=== PATIENT | male | born 1990 | race Caucasian/White ===

== ENCOUNTER 2017-04-23 18:10 | Inpatient (IN) ==
--- NOTE | 2017-04-23 18:35 | Emergency Department Report ---
Overdose HPI - General Chief Complaint: Overdose Stated Complaint: Overdose/SI Time Seen by Provider: 04/23/17 18:35 Source: patient Mode of arrival: other ([facility]) Limitations: altered mental status - History of Present Illness HPI Narrative: 26 YO M brought to ED by [facility] for overdose of 10 Unisom tablets. Patient states that he is divorce from his and that he does not want to be here anymore. Patient also has several superficial laceration on right wrist and forearm. Patient is somewhat confused. Says he took medication at 4:30 this afternoon. Says he took medication to hurt himself. Says he tried to harm himself approx. 1 year ago for "the same reason". complaint: intentional overdose Onset (ago): hour(s) (2) Intent: suicide attempt Context: Intentional Overdose: relationship problems - Related Data Home Medications Medication Instructions Recorded Confirmed No known Home medications [No home 04/23/17 04/23/17 meds] Allergies Allergy/AdvReac Type Severity Reaction Status Date / Time No Known Allergies Allergy Verified 04/23/17 18:44 Review of Systems All systems: reviewed and negative except as stated Psychiatric: Reports: as per HPI, suicidal thoughts, other (overdose) PFSH Patient denies PMH Surgical History: Hernia repair. Testicular surgery Family History: Noncontributory - Social History Smoking status: Current every day smoker Substance use type: methamphetamine Current occupational status: employed Current residence: Apartment/Private Home Physical Exam - Limitations Limitations: altered mental status (confussed and hallucinating) - General General appearance: alert (but confussed) - Normal Exams: Head:: Normocephalic without trauma Eyes:: No scleral icterus, irritation Neck:: Full range of motion, without adenopathy Chest/Respirations:: Clear all anderson, with good airflow, and symmetry bilaterally Cardiovascular:: Regular rate and rhythm, without murmur or gallop Abdomen:: Bowel sounds positive, soft, non-tender, non-distended, no hepatosplenomegaly Musculoskeletal:: No tenderness, or deformity noted, good range of motion, all extremities - Eye Eye exam: Present: other (eyes are dilated bilaterally) - Neck Neck exam: Present: trachea midline - Skin Skin exam: Present: warm, dry, other (Superficial lacerations to right wrist and forearm, no active bleeding) - Expanded Neurological Exam Patient oriented to: Present: person, place Motor strength - LUE: 5/5 Motor strength - RUE: 5/5 Motor strength - LLE: 5/5 Motor strength - RLE: 5/5 DTR: 2+: triceps (L), triceps (R), patellar (L), patellar (R) - Psychiatric Psychiatric exam: Present: agitated, suicidal ideation - Expanded Psychiatric Exam Expanded psych exam: Present: visual hallucinations Course Course Narrative: Patient is having visual hallucinations. Patient is becoming more agitated - Consultations Consultation #1: I discussed patient's HPI, PMH, labs, VS, exam findings, treatment in ED and conversation I had with Poison Control with Dr. Hanley. Dr. Hanley with admit patient to ICU. Time: 21:17 Vital Signs Temperature 98.4 F 04/23/17 18:11 Pulse Rate 83 04/23/17 18:11 Respiratory Rate 16 04/23/17 18:11 Blood Pressure 130/62 04/23/17 18:11 Pulse Oximetry 95 04/23/17 18:11 Temperature 97.9 F 04/25/17 16:00 Pulse Rate 68 04/25/17 19:00 Respiratory Rate 30 H 04/25/17 19:00 Blood Pressure 106/66 04/25/17 19:00 Pulse Oximetry 98 04/25/17 19:00 Overdose - MDM Narrative Medical decision making narrative: Patient continued to become more agitated while being in the ER prior to admission to the CCU. Patient was given Ativan twice for agitation. Patient was admitted to the CCU under the hospitalist service for observation throughout the night. Patient will be screened by [facility] tomorrow. Patient has remained stable and ED has follow poison control's protocol or overdose of Unisom. - Differential Diagnosis Likely: suicide attempt by multiple drug overdose, drug overdose, acetaminophen overdose, accidental drug ingestion - Medical Records Attestation: I reviewed the patient's medical records. - Lab Data Attestation: I reviewed the patient's lab results. Result diagrams: 04/25/17 01:55 04/25/17 01:55 Lab Results 04/23/17 04/23/17 04/23/17 Range/Units 18:57 18:57 19:58 WBC 7.0 (4.5-11.0) T/MM3 RBC 4.57 (4.50-5.90) M/MM3 Hgb 14.2 (13.5-17.5) GM/DL Hct 41.1 (41-53) % MCV 89.9 (80-100) UM3 MCH 31.1 (26-34) UUG MCHC 34.5 (31-37) GM/DL RDW Std Deviation 41.8 (36.9-50.2) FL Plt Count 230 (130-400) T/MM3 MPV 9.6 (9.4-12.4) UM3 Immature Gran % (Auto) 0.1 (0.0-0.5) % Neut % (Auto) 61.2 (33-66) % Lymph % (Auto) 26.7 (23-45) % [place] % (Auto) 10.7 H (0-9.0) % Eos % (Auto) 1.0 (0-4) % Baso % (Auto) 0.3 (0-2) % Neut # 4.3 (1.8-7.7) T/MM3 Lymph # 1.9 (1-4.8) T/MM3 [place] # 0.8 (0-0.8) T/MM3 Eos # 0.1 (0-0.5) T/MM3 Baso # 0.0 (0-0.2) T/MM3 Abs Immat Gran (auto) 0.01 (0.00-0.03) T/MM3 Turbidity < 20 (0-20) Sodium 145 H (134-144) MEQ/L Potassium 3.8 (3.6-5) MEQ/L Chloride 108 H (98-107) MEQ/L Carbon Dioxide 25 (22-30) MEQ/L Anion Gap 12 (5-15) MEQ/L BUN 13.0 (9-20) MG/DL Creatinine 1.0 (0.8-1.5) MG/DL GFR Calculation 89 BUN/Creatinine Ratio 13 (6-26) RATIO Glucose 88 (75-110) MG/DL Calculated Osmolality 278 (261-280) MOSM/KG Calcium 9.8 (8.4-10.2) MG/DL Magnesium (1.6-2.3) MG/DL Total Bilirubin 0.70 (0.20-1.30) MG/DL Icterus Index < 2 (0-7) AST 18 (17-59) U/L ALT 33 (21-72) U/L Alkaline Phosphatase 56 (38-126) U/L Total Protein 6.9 (6.3-8.2) G/DL Albumin 4.6 (3.5-5.0) G/DL Globulin 2.3 L (2.4-3.6) G/DL Albumin/Globulin Ratio 2.0 (1.1-2.2) RATIO TSH 10.90 H (0.47-4.68) MIU/L Free T4 (0.78-2.19) NG/DL Specimen Hemolysis < 15 (0-25) Ur Collection Type Urine, clean catch Urine Color Yellow (YELLOW) Urine Clarity Clear Urine pH 5.5 (5.0-8.0) Ur Specific Saxis >=1.030 H (1.015-1.025) Urine Protein Trace A (NEGATIVE) Urine Glucose (UA) Negative (NEGATIVE) Urine Ketones Negative (NEGATIVE) Urine Occult Blood Negative (NEGATIVE) Urine Nitrate Negative (NEGATIVE) Urine Bilirubin Negative (NEGATIVE) Urine Urobilinogen 0.2 (NORMAL) EU/DL Ur Leukocyte Esterase Negative (NEGATIVE) Urinalysis Comment Microscopic not ind. Salicylates < 1.0 L (2-20) MG/DL Urine Opiates Screen ng/mL Ur Oxycodone Screen ng/mL Urine Methadone Screen ng/mL Ur Propoxyphene Screen ng/mL Acetaminophen 103 H (10-30) UG/ML Ur Barbiturates Screen ng/mL U Tricyclic Antidepress ng/mL Ur Phencyclidine Scrn ng/mL Ur Amphetamines Screen ng/mL U Methamphetamines Scrn ng/mL U Benzodiazepines Scrn ng/mL Urine Cocaine Screen ng/mL U Cannabinoids Screen ng/mL Ur Drug Screen Confirm Ur Drug Screen Info Alcohol, Quantitative <10 (<10) MG/DL 04/23/17 04/23/17 04/23/17 Range/Units 19:58 19:58 20:47 WBC (4.5-11.0) T/MM3 RBC (4.50-5.90) M/MM3 Hgb (13.5-17.5) GM/DL Hct (41-53) % MCV (80-100) UM3 MCH (26-34) UUG MCHC (31-37) GM/DL RDW Std Deviation (36.9-50.2) FL Plt Count (130-400) T/MM3 MPV (9.4-12.4) UM3 Immature Gran % (Auto) (0.0-0.5) % Neut % (Auto) (33-66) % Lymph % (Auto) (23-45) % [place] % (Auto) (0-9.0) % Eos % (Auto) (0-4) % Baso % (Auto) (0-2) % Neut # (1.8-7.7) T/MM3 Lymph # (1-4.8) T/MM3 [place] # (0-0.8) T/MM3 Eos # (0-0.5) T/MM3 Baso # (0-0.2) T/MM3 Abs Immat Gran (auto) (0.00-0.03) T/MM3 Turbidity (0-20) Sodium (134-144) MEQ/L Potassium (3.6-5) MEQ/L Chloride (98-107) MEQ/L Carbon Dioxide (22-30) MEQ/L Anion Gap (5-15) MEQ/L BUN (9-20) MG/DL Creatinine (0.8-1.5) MG/DL GFR Calculation BUN/Creatinine Ratio (6-26) RATIO Glucose (75-110) MG/DL Calculated Osmolality (261-280) MOSM/KG Calcium (8.4-10.2) MG/DL Magnesium (1.6-2.3) MG/DL Total Bilirubin (0.20-1.30) MG/DL Icterus Index (0-7) AST (17-59) U/L ALT (21-72) U/L Alkaline Phosphatase (38-126) U/L Total Protein (6.3-8.2) G/DL Albumin (3.5-5.0) G/DL Globulin (2.4-3.6) G/DL Albumin/Globulin Ratio (1.1-2.2) RATIO TSH (0.47-4.68) MIU/L Free T4 (0.78-2.19) NG/DL Specimen Hemolysis (0-25) Ur Collection Type Urine Color (YELLOW) Urine Clarity Urine pH (5.0-8.0) Ur Specific Saxis (1.015-1.025) Urine Protein (NEGATIVE) Urine Glucose (UA) (NEGATIVE) Urine Ketones (NEGATIVE) Urine Occult Blood (NEGATIVE) Urine Nitrate (NEGATIVE) Urine Bilirubin (NEGATIVE) Urine Urobilinogen (NORMAL) EU/DL Ur Leukocyte Esterase (NEGATIVE) Urinalysis Comment Salicylates (2-20) MG/DL Urine Opiates Screen Negative ng/mL Ur Oxycodone Screen Negative ng/mL Urine Methadone Screen Negative ng/mL Ur Propoxyphene Screen Negative ng/mL Acetaminophen 108 H (10-30) UG/ML Ur Barbiturates Screen Negative ng/mL U Tricyclic Antidepress Positive ng/mL Ur Phencyclidine Scrn Negative ng/mL Ur Amphetamines Screen Positive ng/mL U Methamphetamines Scrn Positive ng/mL U Benzodiazepines Scrn Negative ng/mL Urine Cocaine Screen Negative ng/mL U Cannabinoids Screen Positive ng/mL Ur Drug Screen Confirm Sent out Ur Drug Screen Info Ref lab rpt scanned Alcohol, Quantitative (<10) MG/DL 04/24/17 04/24/17 04/24/17 Range/Units 01:09 06:00 06:00 WBC (4.5-11.0) T/MM3 RBC (4.50-5.90) M/MM3 Hgb (13.5-17.5) GM/DL Hct (41-53) % MCV (80-100) UM3 MCH (26-34) UUG MCHC (31-37) GM/DL RDW Std Deviation (36.9-50.2) FL Plt Count (130-400) T/MM3 MPV (9.4-12.4) UM3 Immature Gran % (Auto) (0.0-0.5) % Neut % (Auto) (33-66) % Lymph % (Auto) (23-45) % [place] % (Auto) (0-9.0) % Eos % (Auto) (0-4) % Baso % (Auto) (0-2) % Neut # (1.8-7.7) T/MM3 Lymph # (1-4.8) T/MM3 [place] # (0-0.8) T/MM3 Eos # (0-0.5) T/MM3 Baso # (0-0.2) T/MM3 Abs Immat Gran (auto) (0.00-0.03) T/MM3 Turbidity < 20 (0-20) Sodium 143 (134-144) MEQ/L Potassium 4.0 (3.6-5) MEQ/L Chloride 112 H (98-107) MEQ/L Carbon Dioxide 24 (22-30) MEQ/L Anion Gap 7 (5-15) MEQ/L BUN 12.0 (9-20) MG/DL Creatinine 0.9 (0.8-1.5) MG/DL GFR Calculation 100 BUN/Creatinine Ratio 13 (6-26) RATIO Glucose 82 (75-110) MG/DL Calculated Osmolality 274 (261-280) MOSM/KG Calcium 9.0 D (8.4-10.2) MG/DL Magnesium 2.2 (1.6-2.3) MG/DL Total Bilirubin (0.20-1.30) MG/DL Icterus Index < 2 (0-7) AST (17-59) U/L ALT (21-72) U/L Alkaline Phosphatase (38-126) U/L Total Protein (6.3-8.2) G/DL Albumin (3.5-5.0) G/DL Globulin (2.4-3.6) G/DL Albumin/Globulin Ratio (1.1-2.2) RATIO TSH (0.47-4.68) MIU/L Free T4 (0.78-2.19) NG/DL Specimen Hemolysis 54 H (0-25) Ur Collection Type Urine Color (YELLOW) Urine Clarity Urine pH (5.0-8.0) Ur Specific Saxis (1.015-1.025) Urine Protein (NEGATIVE) Urine Glucose (UA) (NEGATIVE) Urine Ketones (NEGATIVE) Urine Occult Blood (NEGATIVE) Urine Nitrate (NEGATIVE) Urine Bilirubin (NEGATIVE) Urine Urobilinogen (NORMAL) EU/DL Ur Leukocyte Esterase (NEGATIVE) Urinalysis Comment Salicylates (2-20) MG/DL Urine Opiates Screen ng/mL Ur Oxycodone Screen ng/mL Urine Methadone Screen ng/mL Ur Propoxyphene Screen ng/mL Acetaminophen 61 H 31 H (10-30) UG/ML Ur Barbiturates Screen ng/mL U Tricyclic Antidepress ng/mL Ur Phencyclidine Scrn ng/mL Ur Amphetamines Screen ng/mL U Methamphetamines Scrn ng/mL U Benzodiazepines Scrn ng/mL Urine Cocaine Screen ng/mL U Cannabinoids Screen ng/mL Ur Drug Screen Confirm Ur Drug Screen Info Alcohol, Quantitative (<10) MG/DL 04/24/17 04/24/17 04/24/17 Range/Units 06:00 07:23 12:06 WBC (4.5-11.0) T/MM3 RBC (4.50-5.90) M/MM3 Hgb (13.5-17.5) GM/DL Hct (41-53) % MCV (80-100) UM3 MCH (26-34) UUG MCHC (31-37) GM/DL RDW Std Deviation (36.9-50.2) FL Plt Count (130-400) T/MM3 MPV (9.4-12.4) UM3 Immature Gran % (Auto) (0.0-0.5) % Neut % (Auto) (33-66) % Lymph % (Auto) (23-45) % [place] % (Auto) (0-9.0) % Eos % (Auto) (0-4) % Baso % (Auto) (0-2) % Neut # (1.8-7.7) T/MM3 Lymph # (1-4.8) T/MM3 [place] # (0-0.8) T/MM3 Eos # (0-0.5) T/MM3 Baso # (0-0.2) T/MM3 Abs Immat Gran (auto) (0.00-0.03) T/MM3 Turbidity < 20 (0-20) Sodium 144 (134-144) MEQ/L Potassium 3.9 (3.6-5) MEQ/L Chloride 111 H (98-107) MEQ/L Carbon Dioxide 26 (22-30) MEQ/L Anion Gap 7 (5-15) MEQ/L BUN 12.0 (9-20) MG/DL Creatinine 0.8 (0.8-1.5) MG/DL GFR Calculation 115 BUN/Creatinine Ratio 15 (6-26) RATIO Glucose 82 (75-110) MG/DL Calculated Osmolality 276 (261-280) MOSM/KG Calcium 8.7 (8.4-10.2) MG/DL Magnesium 2.2 (1.6-2.3) MG/DL Total Bilirubin (0.20-1.30) MG/DL Icterus Index < 2 (0-7) AST (17-59) U/L ALT (21-72) U/L Alkaline Phosphatase (38-126) U/L Total Protein (6.3-8.2) G/DL Albumin (3.5-5.0) G/DL Globulin (2.4-3.6) G/DL Albumin/Globulin Ratio (1.1-2.2) RATIO TSH 7.09 H (0.47-4.68) MIU/L Free T4 1.89 (0.78-2.19) NG/DL Specimen Hemolysis < 15 (0-25) Ur Collection Type Urine Color (YELLOW) Urine Clarity Urine pH (5.0-8.0) Ur Specific Saxis (1.015-1.025) Urine Protein (NEGATIVE) Urine Glucose (UA) (NEGATIVE) Urine Ketones (NEGATIVE) Urine Occult Blood (NEGATIVE) Urine Nitrate (NEGATIVE) Urine Bilirubin (NEGATIVE) Urine Urobilinogen (NORMAL) EU/DL Ur Leukocyte Esterase (NEGATIVE) Urinalysis Comment Salicylates (2-20) MG/DL Urine Opiates Screen ng/mL Ur Oxycodone Screen ng/mL Urine Methadone Screen ng/mL Ur Propoxyphene Screen ng/mL Acetaminophen (10-30) UG/ML Ur Barbiturates Screen ng/mL U Tricyclic Antidepress ng/mL Ur Phencyclidine Scrn ng/mL Ur Amphetamines Screen ng/mL U Methamphetamines Scrn ng/mL U Benzodiazepines Scrn ng/mL Urine Cocaine Screen ng/mL U Cannabinoids Screen ng/mL Ur Drug Screen Confirm Ur Drug Screen Info Alcohol, Quantitative (<10) MG/DL - EKG Data EKG #1 EKG attestation: Yes: I reviewed and interpreted this EKG. EKG results narrative: SR, 75 BPM, no STEMI (Dr. Thompson) Disposition Clinical Impression: Overdose Qualifiers: Encounter type: initial encounter Injury intent: intentional self-harm Qualified Code(s): T50.902A - Poisoning by unspecified drugs, medicaments and biological substances, intentional self-harm, initial encounter Disposition: [facility] [place] Condition: Stable - Seen By: midlevel
[2017-04-23] MEDS ORDERED: NS 1,000 ML IV ONE ×2 (18:45→19:56)
[2017-04-23] MEDS: SALINE FLUSH 10ml SYRINGE IVF PRN ×2 (18:55→23:48)
--- NOTE | 2017-04-23 22:57 | History & Physical Report ---
<Yogi Hanley Jessica - Last Filed: 04/23/17 23:53> History of Present Illness Date: 04/23/17 Chief complaint: Drug overdose, confusion, suicidal ideations HPI: This is a 26 y/o brought to ER by local police d/t concerns about drug overdose , confusion and suicidal ideations. Patient purportedly took 10 OTC Unisom tablets today b/t [id number](unknown formulation but suspect one containing antihistamine plus acetaminophen) and states that he did it intentionally to harm himself b/c he did not want to "be here anymore". Patient has periods of confusion and audio hallucinations per ER provider's report but at other times lucid and able to give some history. Per ER provider patient denied chest pain, SOA, dyspnea, LAU, n/v/d, f/c/s and change in bowel or bladder function. In ED, patient received IVFs and one dose of Ativan and contacted poison control and their recommendation was to admit for observation and telemetry and use benzodiazapines for agitation and monitor the QRS interval w/ serial EKGs. Acetaminophen level in ER approximately 4 hours after purported ingestion was 108, and per ER provider Poison Control was not concerned w/ this level. EKG in ER showed QRS interval of 0.1 and 0.11 respectively. Review of Systems ROS unobtainable: due to mental status Review of systems: As noted above in HPI, otherwise patient did not provide any additional history PFSH Per ER provider report patient may have h/o polysubstance abuse and depression w / one prior episode of suicidal ideations/intent approx. 1 year ago. Patient not able to provide specifics re: his past medical history. Surgical History: Hernia repair. Testicular surgery Family History: Patient unable to provide Family History and there is no family at the bedside - Social History Smoking status: Current every day smoker Substance use type: marijuana Medications Home Medications Medication Instructions Recorded Confirmed Type No known Home medications [No home 04/23/17 04/23/17 History meds] Allergies Allergy/AdvReac Type Severity Reaction Status Date / Time No Known Allergies Allergy Verified 04/23/17 18:44 Exam Vital Signs: Temperature 98.4 F 04/23/17 18:11 Pulse Rate 76 04/23/17 21:46 Respiratory Rate 19 04/23/17 19:14 Blood Pressure 125/77 04/23/17 21:46 Pulse Oximetry 98 04/23/17 21:46 Oxygen Delivery Method Room Air Telemetry Rhythm: Sinus Rhythm Height: 1.68 m Weight: 56.1 kg - Constitutional Present: mild distress Comments: Appears intermittently agitated and moves extremities spontaneously, other times appears calm - Routine HEENT Exam Head: Present: normocephalic, atraumatic Eye: Present: EOMI Comments: Pupils are mildly dilated, but reactive to light - Routine Neck Exam Present: supple, trachea midline. Absent: JVD, carotid bruit - Routine Respiratory Exam Present: CTA bilaterally. Absent: accessory muscle use, dyspnea, decreased breath sounds, prolonged expiratory phase, rales, respiratory distress, rhonchi , stridor, wheezes, crackles - Routine Cardiovascular Exam Present: RRR - Routine Abdominal Exam Present: soft, normoactive bowel sounds. Absent: tenderness, non distended, rebound, guarding - Routine Extremities Exam Absent: cyanosis, clubbing, edema - Routine Skin Exam Comments: some superficial lacerations on bilateral wrists anteriorly - Routine Psychiatric Exam Present: auditory hallucinations, agitated Comments: Patient will answer some questions, and oriented to name but not place or situation. Will occasionally make eye contact but then will look up at the nursing staff. Appears agitated intermittently. Results - Labs CBC & Chem 7: 04/23/17 18:57 04/23/17 18:57 Assessment and Plan DVT Prophylaxis: SCD's GI Prophylaxis: Protonix Resuscitation Status: Full Code Assessment and Plan: 1) Acute Intentional Overdose - per report patient took 10 OTC Unisom tabs with intent to harm himself 2) Acute Encephalopathy r/t above - unknown which type of Unisom taken however suspect was combination of diphenhydramine and acetminophen so likely anticholinergic effects 3) Acute Dehydration 4) Acute Suicidal ideations w/ probable h/o depression though unknown if on any medications currently 5) Polysubstance Abuse likely - reports of tobacco and EtOH use and tox screen + for TCA, marijuana and meth 6) Elevated TSH Plan: ICU monitoring Telemetry serial EKGs Labs in AM including recheck of TSH and free T4 Recheck of acetaminophen level at 0100 and 0600 Suicide precautions w/ 1:1 sitter IVFs that of NS tra 100cc/hour and recheck BMP in AM Ativan 1mg IV q 2 hours prn agitation/anxiety Clear liquid diet if able to be alert and oriented and follow commands and then can advance as tolerated SW Consult - will likely need placement Hospital Course Summary Disclaimer: The visit summary below is not to be considered part of the above Progress Note. <NadiaAvery S - Last Filed: 04/24/17 13:19> History of Present Illness Date: 04/24/17 Exam Vital Signs: Temperature 98.0 F 04/24/17 12:00 Pulse Rate 42 L 04/24/17 12:00 Respiratory Rate 21 04/24/17 12:00 Blood Pressure 120/65 04/24/17 12:00 Pulse Oximetry 100 04/24/17 12:00 Oxygen Delivery Method Room Air Height: 5 ft 6 in Weight: 56.1 kg Results - Labs CBC & Chem 7: 04/23/17 18:57 04/24/17 12:06 Assessment and Plan Assessment and Plan: Patient seen and examined. Agree with above assessment and plan. Patient is still extremely altered and actively hallucinating. Very bradycardic as well. We will check a tricyclic level. Hospital Course Summary Disclaimer: The visit summary below is not to be considered part of the above Progress Note.
[2017-04-23] MEDS ORDERED: CALCIUM CARBONATE Chewable 500mg TABLET PO PRN (23:12)
[2017-04-23] MEDS ORDERED: IBUPROFEN 400 MG TABLET PO PRN (23:12)
[2017-04-23] MEDS ORDERED: ONDANSETRON 4 MG/2 ML INJECTION IVP PRN (23:12)
[2017-04-23] MEDS ORDERED: NS 1,000 ML IV SCH (23:12)
[2017-04-23] MEDS ORDERED: DOCUSATE SODIUM 100 MG CAPSULE PO PRN (23:12)
[2017-04-24] MEDS: PANTOPRAZOLE 40 MG INJECTION IVP SCH ×2 (00:51→09:05)
[2017-04-24] MEDS ORDERED: SODIUM BICARBONATE 8.4% (50mEq/50ml) PFS (1 amp) IVP ONE (09:00)
[2017-04-24] MEDS ORDERED: SODIUM BICARBONATE 100 MEQ in D5W 1,000 ML IV SCH (09:15)
[2017-04-24] MEDS: NS 1,000 ML IV SCH ×2 (10:10→20:37)
--- NOTE | 2017-04-24 22:01 | Neuropsychiatric Consult ---
[facility] Date: 04/24/17 Requesting Physician: Yogi Hanley Reason for Consultation: overdose on Unisom Start Time: 19:30 Stop Time: 20:00 History of Present Illness: Patient is a 26-year-old, male, who presented to the ER via EMS post suicide attempt by overdose on unknown quantity of Unisom( Diphenhydramine). Since admission he has been bradycardic and his UDS on presentation was positive for Amphetamine, Methamphetamine and TCA , the later possibly due to the Unisom. Patient was seen to be confused and disoriented to time, place and person. He was noted to be agitated, turning and rolling from one end of the bed to another due to the confusion. Patient has required a total of 8 mg of Lorazepam given for agitation, since admission so far and he continues to be confused. There is concern of patient's low pulse rate ranging in the 30's. PMHx: unable to obtain due to confusion Past Psych : Unable to obtain due to confusion PFSH Unable to obtain due to confusion Surgical History: Hernia repair. Testicular surgery Family History: Unable to obtain due to confusion - Social History Smoking status: Current every day smoker Review of Systems ROS unobtainable: due to mental status Mental Status Exam Vitals: Last Vital Signs Temp 98 F 04/24/17 18:04 Pulse 39 L 04/24/17 18:04 Resp 16 04/24/17 18:04 BP 111/69 04/24/17 18:04 Pulse Ox 99 04/24/17 18:04 Height: 1.68 m Weight: 56.1 kg - Mental Status Exam Muscle Strength/Tone: Weak Dressing: Bizarre Grooming: Poor Attitude: Uncooperative, Combative Motor Activity: Agitation, Restless Eye Contact: Poor Speech: Other (incoherent) Rhythm: Mumbled, Paucity of Language Orientation: Disoriented to time, Disoriented to person, Disoriented to place, Disoriented to situation Mood: Other (confused) Rate of Thoughts: Delayed Thought Organization: Disorganized Associations: Loose-associations, Illogical Abstract Reasoning: Poor abstract reasoning Computation: Poor Computation Thought Content: Dissociative Perception/Psychotic: Psychotic Current Hallucinations: Visual Language: Naming Impaired Fund of Knowledge: Poor fund of knowledge Memory: Poor-immediate, Poor-recent, Poor-remote Suicidal Ideation: Plan (given recent suicide attempt) Insight: Poor Judgement: Poor Impulse Control: Poor - Laboratory Result Diagrams: 04/23/17 18:57 04/24/17 12:06 Assessment and Plan (1) Anticholinergic drug overdose Current visit: Yes Status: Acute (2) Delirium due to another medical condition, acute, hyperactive Current visit: Yes Status: Acute (3) Depressive disorder Current visit: Yes Status: Acute Assessment: 1. Anti-cholinergic drug overdose 2. delirium due to the later. 3. Depressive disorder Plan 1. Patient will require Level 3 suicide precaution- Constant observation. 2.Given the overdose on Benadryl, he will require an anti-psychotic with the least anti-cholinergic effect- Risperidone Mtab 1mg BID. 3.Patient to start Lorazepam 2mg TID. This will reduce the PRN medication use. 4.Cont. to rehydrate patient. 5. Patient will most likely require inpatient psych hospitalization when medically stable. 6. Patient can not leave AMA, and if he tries to leave, please take out a court hold. 7. We will continue to follow patient. 8. Thank you for the opportunity to participate in the care of this patient
[2017-04-24] MEDS ORDERED: HALOPERIDOL 5 MG/ML INJECTION IVP ONE (23:09)
[2017-04-24] MEDS: RisperiDONE 1 MG TABLET PO SCH (23:14)
[2017-04-25] MEDS ORDERED: FALL RISK - PHARMACY CONSULT MC PRN (00:03)
--- NOTE | 2017-04-25 07:33 | Cardiology Consult Note ---
History of Present Illness Consult date: 04/25/17 <Concepcion Thornton - 04/25/17 07:40> Requesting physician: Damion Rodríguez <Concepcion Thornton - 04/25/17 07:40> Chief complaint: bradycardia <Concepcion Thornton - 04/25/17 07:40> History of present illness: Aroldo is a 26 year old male brought to ED by local police post suicide attempt by overdose on unknown quantity of Unisom (Diphenhydramine). He purportedly took 10 tablets between 1114-0722 yesterday and stated that he did it intentionally to harm himself because he did not want to "be here anymore". He had periods of confusion and audio hallucinations per ED provider's report but at other times lucid and able to give some history. Since admission he has been bradycardic as low as the 30s and his UDS on presentation was positive for Amphetamine, Methamphetamine and TCA , the later possibly due to the Unisom. Aroldo is examined in his room in CCU, he is in no acute distress, breathing is shallow and non-labored, he does not respond to voice or touch. <Concepcion Thornton 04/25/17 09:47> Review of Systems ROS unobtainable: other (patient uncooperative) <Concepcion Thornton 04/25/17 09: 47> [facility] Unable to obtain from patient. <Concepcion Thornton 04/25/17 09:47> Surgical History: Hernia repair. Testicular surgery <Concepcion Thornton 07:40> Family History: Unable to obtain from patient. 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 <Concepcion Thornton 04/25/17 09:47> Current occupational status: employed <Concepcion Thornton 04/25/17 09:47> Current occupation: [employer] <Concepcion Thornton 04/25/17 09:47> Medications Home Medications Medication Instructions Recorded Confirmed Type No known Home medications [No home 04/23/17 04/23/17 History meds] <Louis Batres - 04/26/17 11:59> Allergies Allergy/AdvReac Type Severity Reaction Status Date / Time No Known Allergies Allergy Verified 04/23/17 18:44 <Louis Batres - 04/26/17 11:59> Exam Vital signs: Temperature 97.9 F 04/25/17 16:00 Pulse Rate 68 04/25/17 19:00 Respiratory Rate 30 H 04/25/17 19:00 Blood Pressure 106/66 04/25/17 19:00 Pulse Oximetry 98 04/25/17 19:00 Oxygen Delivery Method Room Air <Louis Batres - 04/26/17 11:59> Temperature 97.9 F 04/25/17 04:00 Pulse Rate 51 L 04/25/17 07:15 Respiratory Rate 25 H 04/25/17 07:15 Blood Pressure 94/55 04/25/17 07:15 Pulse Oximetry 100 04/25/17 07:15 Oxygen Delivery Method Room Air <Concepcion Thornton 04/25/17 07:40> - Constitutional no acute distress, thin, somnolent <Concepcion Thornton 04/25/17 09:47> - Routine HEENT Exam Head: Present: normocephalic <Concepcion Thornton 04/25/17 09:47> - Routine Neck Exam Absent: JVD, carotid bruit <Concepcion Thornton 04/25/17 09:47> - Routine Chest/Breast/Axilla Exam Chest wall: Absent: tenderness <Concepcion Thornton 04/25/17 09:47> - Routine Respiratory Exam Present: CTA bilaterally. Absent: rales, wheezes <Concepcion Thornton 04/25/17 09:47> - Routine Cardiovascular Exam Present: RRR, no murmur. Absent: JVD <Concepcion Thornton 04/25/17 09:47> - Routine Abdominal Exam Present: soft, normoactive bowel sounds <Concepcion Thornton 04/25/17 09:47> - Routine Extremities Exam Present: no edema <Concepcion Thornton - 04/25/17 09:47> - Routine Skin Exam Present: intact, dry, warm <Concepcion Thornton - 04/25/17 09:47> - Routine Neurological Exam Present: altered mental status <Concepcion Thornton - 04/25/17 09:47> - Routine Psychiatric Exam Present: unable to assess <Concepcion Thornton - 04/25/17 09:47> Results 04/25/17 01:55 04/25/17 01:55 <MedardoTaylorLouis - 04/26/17 11:59> Cardiac Enzymes 04/25/17 Range/Units 01:55 Troponin I < 0.012 (0-0.12) ng/ml CBC 04/25/17 Range/Units 01:55 WBC 7.5 (4.5-11.0) T/MM3 RBC 4.23 L (4.50-5.90) M/MM3 Hgb 13.2 L (13.5-17.5) GM/DL Hct 39.7 L (41-53) % Plt Count 179 (130-400) T/MM3 Neut # 3.7 (1.8-7.7) T/MM3 Lymph # 2.9 (1-4.8) T/MM3 [place] # 0.6 (0-0.8) T/MM3 Eos # 0.3 (0-0.5) T/MM3 Baso # 0.0 (0-0.2) T/MM3 Comprehensive Metabolic Panel 04/25/17 Range/Units 01:55 Sodium 141 (134-144) MEQ/L Potassium 4.1 (3.6-5) MEQ/L Chloride 110 H (98-107) MEQ/L Carbon Dioxide 24 (22-30) MEQ/L BUN 13.0 (9-20) MG/DL Creatinine 0.9 (0.8-1.5) MG/DL Glucose 77 (75-110) MG/DL Calcium 8.7 (8.4-10.2) MG/DL Intake and Output 04/24/17 04/25/17 04/25/17 22:59 06:59 14:59 Intake Total 655.000 / 755.000 400 / 400 Output Total 350 / 350 Balance 305.000 / 405.000 400 / 400 Intake: IV 655.000 / 755.000 400 / 400 Normal Saline 1,000 ml @ 655.000 / 755.000 400 / 400 100 mls/hr IV .Q10H [facility] Rx#:[id number] Output: Urine 350 / 350 Laboratory Results - last 48 hr 04/23/17 04/23/17 04/23/17 18:57 18:57 19:58 WBC 7.0 RBC 4.57 Hgb 14.2 Hct 41.1 MCV 89.9 MCH 31.1 MCHC 34.5 RDW Std Deviation 41.8 Plt Count 230 MPV 9.6 Immature Gran % (Auto) 0.1 Neut % (Auto) 61.2 Lymph % (Auto) 26.7 [place] % (Auto) 10.7 H Eos % (Auto) 1.0 Baso % (Auto) 0.3 Neut # 4.3 Lymph # 1.9 [place] # 0.8 Eos # 0.1 Baso # 0.0 Abs Immat Gran (auto) 0.01 Turbidity < 20 Sodium 145 H Potassium 3.8 Chloride 108 H Carbon Dioxide 25 Anion Gap 12 BUN 13.0 Creatinine 1.0 GFR Calculation 89 BUN/Creatinine Ratio 13 Glucose 88 Calculated Osmolality 278 Calcium 9.8 Magnesium Total Bilirubin 0.70 Icterus Index < 2 AST 18 ALT 33 Alkaline Phosphatase 56 Creatine Kinase Troponin I Total Protein 6.9 Albumin 4.6 Globulin 2.3 L Albumin/Globulin Ratio 2.0 TSH 10.90 H Specimen Hemolysis < 15 Ur Collection Type Urine, clean catch Urine Color Yellow Urine Clarity Clear Urine pH 5.5 Ur Specific [place] >=1.030 H Urine Protein Trace A Urine Glucose (UA) Negative Urine Ketones Negative Urine Occult Blood Negative Urine Nitrate Negative Urine Bilirubin Negative Urine Urobilinogen 0.2 Ur Leukocyte Esterase Negative Urinalysis Comment Microscopic not ind. Salicylates < 1.0 L Urine Opiates Screen Ur Oxycodone Screen Urine Methadone Screen Ur Propoxyphene Screen Acetaminophen 103 H Ur Barbiturates Screen U Tricyclic Antidepress Ur Phencyclidine Scrn Ur Amphetamines Screen U Methamphetamines Scrn U Benzodiazepines Scrn Urine Cocaine Screen U Cannabinoids Screen Ur Drug Screen Confirm Alcohol, Quantitative <10 04/23/17 04/23/17 04/23/17 19:58 19:58 20:47 WBC RBC Hgb Hct MCV MCH MCHC RDW Std Deviation Plt Count MPV Immature Gran % (Auto) Neut % (Auto) Lymph % (Auto) [place] % (Auto) Eos % (Auto) Baso % (Auto) Neut # Lymph # [place] # Eos # Baso # Abs Immat Gran (auto) Turbidity Sodium Potassium Chloride Carbon Dioxide Anion Gap BUN Creatinine GFR Calculation BUN/Creatinine Ratio Glucose Calculated Osmolality Calcium Magnesium Total Bilirubin Icterus Index AST ALT Alkaline Phosphatase Creatine Kinase Troponin I Total Protein Albumin Globulin Albumin/Globulin Ratio TSH Specimen Hemolysis Ur Collection Type Urine Color Urine Clarity Urine pH Ur Specific [place] Urine Protein Urine Glucose (UA) Urine Ketones Urine Occult Blood Urine Nitrate Urine Bilirubin Urine Urobilinogen Ur Leukocyte Esterase Urinalysis Comment Salicylates Urine Opiates Screen Negative Ur Oxycodone Screen Negative Urine Methadone Screen Negative Ur Propoxyphene Screen Negative Acetaminophen 108 H Ur Barbiturates Screen Negative U Tricyclic Antidepress Positive Ur Phencyclidine Scrn Negative Ur Amphetamines Screen Positive U Methamphetamines Scrn Positive U Benzodiazepines Scrn Negative Urine Cocaine Screen Negative U Cannabinoids Screen Positive Ur Drug Screen Confirm Sent out Alcohol, Quantitative 04/24/17 04/24/17 04/24/17 01:09 06:00 06:00 WBC RBC Hgb Hct MCV MCH MCHC RDW Std Deviation Plt Count MPV Immature Gran % (Auto) Neut % (Auto) Lymph % (Auto) [place] % (Auto) Eos % (Auto) Baso % (Auto) Neut # Lymph # [place] # Eos # Baso # Abs Immat Gran (auto) Turbidity < 20 Sodium 143 Potassium 4.0 Chloride 112 H Carbon Dioxide 24 Anion Gap 7 BUN 12.0 Creatinine 0.9 GFR Calculation 100 BUN/Creatinine Ratio 13 Glucose 82 Calculated Osmolality 274 Calcium 9.0 D Magnesium 2.2 Total Bilirubin Icterus Index < 2 AST ALT Alkaline Phosphatase Creatine Kinase Troponin I Total Protein Albumin Globulin Albumin/Globulin Ratio TSH Specimen Hemolysis 54 H Ur Collection Type Urine Color Urine Clarity Urine pH Ur Specific [place] Urine Protein Urine Glucose (UA) Urine Ketones Urine Occult Blood Urine Nitrate Urine Bilirubin Urine Urobilinogen Ur Leukocyte Esterase Urinalysis Comment Salicylates Urine Opiates Screen Ur Oxycodone Screen Urine Methadone Screen Ur Propoxyphene Screen Acetaminophen 61 H 31 H Ur Barbiturates Screen U Tricyclic Antidepress Ur Phencyclidine Scrn Ur Amphetamines Screen U Methamphetamines Scrn U Benzodiazepines Scrn Urine Cocaine Screen U Cannabinoids Screen Ur Drug Screen Confirm Alcohol, Quantitative 04/24/17 04/24/1717 06:00 12:06 01:55 WBC 7.5 RBC 4.23 L Hgb 13.2 L Hct 39.7 L MCV 93.9 MCH 31.2 MCHC 33.2 RDW Std Deviation 44.0 Plt Count 179 MPV 10.8 Immature Gran % (Auto) 0.1 Neut % (Auto) 48.5 Lymph % (Auto) 39.0 [place] % (Auto) 8.4 Eos % (Auto) 3.7 Baso % (Auto) 0.3 Neut # 3.7 Lymph # 2.9 [place] # 0.6 Eos # 0.3 Baso # 0.0 Abs Immat Gran (auto) 0.01 Turbidity < 20 Sodium 144 Potassium 3.9 Chloride 111 H Carbon Dioxide 26 Anion Gap 7 BUN 12.0 Creatinine 0.8 GFR Calculation 115 BUN/Creatinine Ratio 15 Glucose 82 Calculated Osmolality 276 Calcium 8.7 Magnesium 2.2 Total Bilirubin Icterus Index < 2 AST ALT Alkaline Phosphatase Creatine Kinase Troponin I Total Protein Albumin Globulin Albumin/Globulin Ratio TSH 7.09 H Specimen Hemolysis < 15 Ur Collection Type Urine Color Urine Clarity Urine pH Ur Specific [place] Urine Protein Urine Glucose (UA) Urine Ketones Urine Occult Blood Urine Nitrate Urine Bilirubin Urine Urobilinogen Ur Leukocyte Esterase Urinalysis Comment Salicylates Urine Opiates Screen Ur Oxycodone Screen Urine Methadone Screen Ur Propoxyphene Screen Acetaminophen Ur Barbiturates Screen U Tricyclic Antidepress Ur Phencyclidine Scrn Ur Amphetamines Screen U Methamphetamines Scrn U Benzodiazepines Scrn Urine Cocaine Screen U Cannabinoids Screen Ur Drug Screen Confirm Alcohol, Quantitative 04/25/17 04/25/17 01:55 01:55 WBC RBC Hgb Hct MCV MCH MCHC RDW Std Deviation Plt Count MPV Immature Gran % (Auto) Neut % (Auto) Lymph % (Auto) [place] % (Auto) Eos % (Auto) Baso % (Auto) Neut # Lymph # [place] # Eos # Baso # Abs Immat Gran (auto) Turbidity < 20 Sodium 141 Potassium 4.1 Chloride 110 H Carbon Dioxide 24 Anion Gap 7 BUN 13.0 Creatinine 0.9 GFR Calculation 100 BUN/Creatinine Ratio 14 Glucose 77 Calculated Osmolality 270 Calcium 8.7 Magnesium 2.2 Total Bilirubin Icterus Index < 2 AST ALT Alkaline Phosphatase Creatine Kinase 184 H Troponin I < 0.012 Total Protein Albumin Globulin Albumin/Globulin Ratio TSH Specimen Hemolysis < 15 < 15 Ur Collection Type Urine Color Urine Clarity Urine pH Ur Specific [place] Urine Protein Urine Glucose (UA) Urine Ketones Urine Occult Blood Urine Nitrate Urine Bilirubin Urine Urobilinogen Ur Leukocyte Esterase Urinalysis Comment Salicylates Urine Opiates Screen Ur Oxycodone Screen Urine Methadone Screen Ur Propoxyphene Screen Acetaminophen Ur Barbiturates Screen U Tricyclic Antidepress Ur Phencyclidine Scrn Ur Amphetamines Screen U Methamphetamines Scrn U Benzodiazepines Scrn Urine Cocaine Screen U Cannabinoids Screen Ur Drug Screen Confirm Alcohol, Quantitative <HillaryConcepcion madrigal 04/25/17 09:47> - Imaging and Cardiology EKG results: image reviewed <HillaryConcepcion madrigal 04/25/17 09:47> - EKG Interpretation EKG: sinus rhythm <HillaryConcepcion madrigal 04/25/17 09:47> EKG shows: bradycardia <HillaryConcepcion Suni 04/25/17 09:47> EKG interpretations - Dysrhythmias Sinus rhythms and dysrhythmias: sinus bradycardia (< 50 bpm) (HR 39) <Concepcion Thornton 04/25/17 09:47> - Blocks, axis, hypertrophy, ST abn Repolarization changes or abnormalities: nonspecific abnormality, ST segment, and/or T wave <Concepcion Thornton 04/25/17 09:47> Assessment and Plan (1) Anticholinergic drug overdose Status: Acute (2) Depressive disorder Status: Acute (3) Bradycardia Status: Acute <MedardoLouis - 04/26/17 11:59> (1) Anticholinergic drug overdose Status: Acute (2) Depressive disorder Status: Acute (3) Bradycardia Status: Acute Result of multiple drug use/ overdose. Improving. Rate in the 50s now <Hillary,Concepcion Culp - 04/25/17 09:28> - Attestation Attestation Narrative: 04/26/17 11:59 Recommendation After examining the patient I agree with the above assessment. I am involved in the formulation of the patient's plan of care. <Louis Batres - 04/26/17 11:59> Hospital Course Summary Disclaimer: The visit summary below is not to be considered part of the above Progress Note. <Louis Batres - 04/26/17 11:59> The visit summary below is not to be considered part of the above Progress Note. <Concepcion Thornton 04/25/17 07:40> Sepsis Assessment - Evaluation Sepsis screening result: No Definite Risk <Concepcion Thornton 04/25/17 07:40>
[2017-04-25] MEDS: NS 1,000 ML IV SCH ×3 (08:12→13:42)
[2017-04-25] MEDS: PANTOPRAZOLE 40 MG INJECTION IVP SCH (09:07)
[2017-04-25] MEDS: RisperiDONE 1 MG TABLET PO SCH (09:08)
--- NOTE | 2017-04-25 09:25 | Progress Note ---
Subjective: Much more awake and alert today. States he needs to go to his court date today. Knows His name. Was found to be very bradycardic while sleeping overnight. Psychiatry input appreciated. Objective Vital signs: Temperature 97.9 F 04/25/17 04:00 Pulse Rate 51 L 04/25/17 07:15 Respiratory Rate 25 H 04/25/17 07:15 Blood Pressure 94/55 04/25/17 07:15 Pulse Oximetry 100 04/25/17 07:15 Oxygen Delivery Method Room Air Gen.-lethargic but arousable in no acute distress Cardiovascular-regular rate and rhythm Lungs-clear auscultation bilaterally Abdomen-benign Number extremities-no edema cyanosis or clubbing Neurological cranial nerves II through XII grossly intact Weight: 51.6 kg Results - Labs CBC & Chem 7: 04/25/17 01:55 04/25/17 01:55 Assessment and Plan DVT Prophylaxis: SCD's GI Prophylaxis: Protonix Resuscitation Status: Full Code Assessment and Plan: # Suicide Attempt - psychiatry input appreciated. Continue 1:1 sitter. # Bradycardia - improving. Secondary to polysubstance abuse. # Acute encephalopathy - secondary to medications. Improving. Sepsis Assessment - Evaluation Sepsis screening result: No Definite Risk Hospital Course Summary Disclaimer: The visit summary below is not to be considered part of the above Progress Note.
--- NOTE | 2017-04-25 14:07 | Discharge Instructions ---
Discharge Plan - Med Rec/Dispo Prescriptions: No Action No known Home medications [No home meds] 0 #0 misc Discharge Instructions/Outpatient Orders: Final Provider Discharge Instructions Location: Determined By Patient - Disposition 65 To Psych Hosp/Unit
--- NOTE | 2017-04-25 14:11 | Discharge Summary ---
Discharge Information Date of admission: 04/24/17 15:06 Anticipated date of discharge: 04/25/17 Attending Physician: Erica Jack MD Consults: 04/24/17 17:43 Physician Consult [CONS] Routine Consulting Provider: Doyle Elmore Reason For Exam: suicidal ideation Ordering Provider has Notified Cellar Hand: Yes 04/25/17 02:18 Physician Consult [CONS] Routine Consulting Provider: Louis Batres Reason For Exam: Bradycardia Ordering Provider has Notified Cellar Hand: No - Laboratory Labs: 04/25/17 01:55 04/25/17 01:55 History of Present Illness HPI: This is a 26 y/o brought to ER by local police d/t concerns about drug overdose , confusion and suicidal ideations. Patient purportedly took 10 OTC Unisom tablets today b/t [id number] (unknown formulation but suspect one containing antihistamine plus acetaminophen) and states that he did it intentionally to harm himself b/c he did not want to "be here anymore". Patient has periods of confusion and audio hallucinations per ER provider's report but at other times lucid and able to give some history. Per ER provider patient denied chest pain, SOA, dyspnea, LAU, n/v/d, f/c/s and change in bowel or bladder function. In ED, patient received IVFs and one dose of Ativan and contacted poison control and their recommendation was to admit for observation and telemetry and use benzodiazapines for agitation and monitor the QRS interval w/ serial EKGs. Acetaminophen level in ER approximately 4 hours after purported ingestion was 108, and per ER provider Poison Control was not concerned w/ this level. EKG in ER showed QRS interval of 0.1 and 0.11 respectively. 04/25/17 14:08 Objective Vital signs: Temperature 98.1 F 04/25/17 12:00 Pulse Rate 68 04/25/17 12:00 Respiratory Rate 28 H 04/25/17 12:00 Blood Pressure 100/68 04/25/17 12:00 Pulse Oximetry 100 04/25/17 12:00 Oxygen Delivery Method Room Air Gen.-aaox3, in no acute distress CV-regular rate and rhythm Lungs-clear auscultation bilaterally Abdomen-benign Extremities-no e/c/c Skin-no e/c/c Weight: 51.6 kg Hospital Course This is a general summary of the patient's hospital course. For more details refer to the complete medical record. This is a 26-year-old male admitted to the hospital for suicide attempt with polypharmacy. Unclear at this time exactly what he toke. His drug screen came back positive for many more substances that he claimed to have taken. He was actively psychotic with hallucinations at time of admission. These have resolved. He was started on Risperdal by psychiatry for the acute hallucinations however this will be discontinued at this time. She was seen by psychiatry and primary review and it was recommended that he be sent to an inpatient psychiatric facility for further management and treatment. Patient was noted to be significantly bradycardic at time of admission. This was secondary to medications. Cardiology was consult to do no intervention was done. His heart rate got as low as 28 while he was sleeping but it is back in normal sinus rhythm with a regular rate of 70-80. Patient is medically stable for transfer. Time spent with patient: 25 - 35 minutes Discharge Plan - Med Rec/Dispo Prescriptions: Continue No known Home medications [No home meds] 0 #0 misc Discharge Instructions/Outpatient Orders: Final Provider Discharge Instructions Location: Determined By Patient - Disposition 65 To Psych Hosp/Unit
[2017-04-25] MEDS ORDERED: NICOTINE 21 MG PATCH TD SCH (15:00)
[2017-04-25 16:04] VITALS: TEMP 97.9; O2SAT 98
[2017-04-25 22:00] VITALS: BP 106/66; PULSE 68; RESP 30
[2017-04-26] MEDS ORDERED: NICOTINE PATCH REMOVAL TD SCH (09:00)
== END 2017-04-25 19:15 | DRG 917 ==
LOC: CCU 18:10 → ED 18:10 → CCU 22:58
PROVIDERS: ADMIT Internal Medicine; ATTEND Internal Medicine